=== PATIENT | male | born 1965 | race Caucasian/White ===

== ENCOUNTER → 2019-01-28 20:40 | Outpatient (REF) | payer OTHER, MEDICAID, SELFPAY ==
[2019-01-28 21:19] LABS: Hematocrit 47.5 % (41-53); Mean Corpuscular HGB Conc 33.6 % (30-36); Mean Corpuscular Hemoglobin 30.7 PG (26-34); Mean Corpuscular Volume 91.1 fL (80-100); Platelet Count 215 X10^3/uL (150-400); Red Blood Cell Count 5.21 X10^6/uL (4.5-5.9); Red Cell Distribution Width 14.3 % (11.6-14.8); White Blood Cell Count 12.7 X10^3/uL (4.5-11.0)
[2019-01-28 21:27] LABS: Add Manual Diff / Slide Review YES
[2019-01-28 22:12] LABS: Neutrophils Absolute Manual 10795 /uL (3000-5900); Total Cells Counted 100
[2019-01-28 22:13] LABS: RBC Morphology Normal Morphology
== END ==
LOC: LAB 20:40
PROVIDERS: Family Provider Family Medicine Geriatric Medicine; PCP Family Medicine Geriatric Medicine; Visit Provider Family Medicine Geriatric Medicine
DX: D72.829 Elevated white blood cell count, unspecified (principal)
CPT/HCPCS: 36415; 85025